=== PATIENT | female | born 1970 | race Caucasian/White ===

== ENCOUNTER 2019-12-13 10:53 | Emergency (ER) | payer MEDICARE, MEDICAID ==
[2019-12-13] MEDS ORDERED: LORazepam 1 MG Tab PO ONE (13:20)
--- NOTE | 2019-12-13 13:23 | EDM.PDOCBH ---
ED HPI GENERAL MEDICAL PROBLEM - General Chief Complaint: Behavioral/Psych Stated Complaint: EVAL Time Seen by Provider: 12/13/19 13:15 Source of Information: Reports: Patient, RN Notes Reviewed History Limitations: Reports: No Limitations - History of Present Illness INITIAL COMMENTS - FREE TEXT/NARRATIVE: 49-year-old female presents emergency department today with long [place]. She is a member of the [facility] has an extensive psychiatric history. Is verbalizing self-harm with cutting behavior. This has happened in the past. Recently had changes in the [facility] where her primary caregiver is on vacation for 1week which time she started acting out stating she has self-harm. She admits to being upset angry and scared and is having difficulty coping with her current living situation - Related Data Allergies Allergy/AdvReac Type Severity Reaction Status Date / Time No Known Allergies Allergy Verified 12/13/19 13:06 Home Meds: Home Meds Benztropine [Cogentin] 1 mg PO DAILY 12/13/19 [History] Calcium Carbonate [Tums] 200 mg PO ASDIRECTED 12/13/19 [History] Calcium Carbonate/Vitamin D3 [Calcium 600 + D3 Softgel] 1 each PO DAILY [History] Divalproex Sodium [Depakote ER] 500 mg PO DAILY 12/13/19 [History] Eszopiclone [Lunesta] 3 mg PO BEDTIME 12/13/19 [History] FLUoxetine [PROzac] 10 mg PO DAILY 12/13/19 [History] Famotidine 20 mg PO BID 12/13/19 [History] Gabapentin [Neurontin] 300 mg PO BID 12/13/19 [History] Gabapentin [Neurontin] 900 mg PO BEDTIME 12/13/19 [History] Ibuprofen [Advil] 200 mg PO Q6HR PRN 12/13/19 [History] LORazepam [Ativan] 1.5 tab PO ASDIRECTED 12/13/19 [History] Magnesium 400 mg PO BEDTIME 12/13/19 [History] OLANZapine [Zyprexa] 5 mg PO DAILY 12/13/19 [History] OLANZapine [Zyprexa] 15 mg PO BEDTIME 12/13/19 [History] OXcarbazepine [Trileptal] 900 mg PO BEDTIME 12/13/19 [History] Omeprazole Magnesium [Prilosec] 20 mg PO DAILY 12/13/19 [History] Propranolol [Inderal] 20 mg PO BID 12/13/19 [History] haloperidoL [Haloperidol] 20 mg PO DAILY 12/13/19 [History] Past Medical History HEENT History: Reports: Impaired Vision Genitourinary History: Reports: Urinary Incontinence Psychiatric History: Reports: Psych Hospitalization(s), Suicide Attempt, Suicidal Ideation - Past Surgical History Head Surgeries/Procedures: Reports: None Female Surgical History: Reports: None Dermatological Surgical History: Reports: None Social & Family History - Tobacco Use Smoking Status *Q: Former Smoker Used Tobacco, but Quit: Yes Month/Year Tobacco Last Used: 2018 Second Hand Smoke Exposure: No - Caffeine Use Caffeine Use: Reports: Coffee, Soda - Recreational Drug Use Recreational Drug Use: No ED ROS GENERAL - Review of Systems Review Of Systems: See Below Constitutional: Reports: No Symptoms HEENT: Reports: No Symptoms Respiratory: Reports: No Symptoms Cardiovascular: Reports: No Symptoms GI/Abdominal: Reports: No Symptoms Psychiatric: Reports: Anxiety, Other (Self-harm) ED EXAM, BEHAVIORAL HEALTH - Physical Exam Exam: See Below Text/Narrative:: Patient declined any physical exam Exam Limited By: No Limitations General Appearance: Alert, WD/WN, No Apparent Distress Psychiatric: Alert, Flat Affect, Poor Eye Contact, Other (self harm) COURSE, BEHAVIORAL HEALTH COMP - Course Vital Signs: Last Vital Signs Temp 96.9 F 12/13/19 13:06 Pulse 82 12/13/19 13:06 Resp 16 12/13/19 13:06 BP 199/119 H 12/13/19 13:06 Pulse Ox 96 12/13/19 13:06 Orders, Labs, Meds: Medications Discontinued Medications Generic Name Dose Route Start Last Admin Trade Name Freq PRN Reason Stop Dose Admin Lorazepam 1 mg 12/13/19 13:20 12/13/19 13:32 Ativan PO 12/13/19 13:21 1 mg ONETIME ONE Administration Departure - Departure Time of Disposition: 14:33 Disposition: DC/Tfer to [facility] Condition: Poor Clinical Impression: Behavioral problem - Discharge Information Referrals: PCP,None [Primary Care Provider] - Forms: ED Department Discharge Additional Instructions: Recommend try the Ativan at night from your PRN order, until you are reevaluated by your primary care hopefully this week Sepsis Event Note - Evaluation Sepsis Screening Result: No Definite Risk - Focused Exam Vital Signs: Vital Signs Temp Pulse Resp BP Pulse Ox 12/13/19 13:06 96.9 F 82 16 199/119 H 96 12/13/19 12:58 96.9 F 82 16 199/119 H 96 Date Exam was Performed: 12/13/19 Time Exam was Performed: 14:30 - Assessment/Plan Plan: Assessment Acuity = acute Site and laterality = behavioral outbursts with suicidal ideation Etiology = unknown probably related to recent change in home environment Manifestations = none Location of injury = Home Lab values = none Plan I had a long discussion with her she feels her biggest problem is she has not been able to get any sleep she does have an Ativan order as a as needed however she does not always get this depending upon staff and concern for tolerance therefore I am recommending try the as needed Ativan at night until she can be reevaluated by her primary care. Also call discussed case with her guardian to social work case manager at 1415 was in agreement with return back to the [facility] to try and minimalize any social changes This note was dictated using [employer] voice recognition software please call with any questions on syntax or grammar.
== END 2019-12-13 14:47 ==
LOC: JP.ED 10:53
DX: R45.851 Suicidal ideations (principal); Z87.891 Personal history of nicotine dependence; Z79.899 Other long term (current) drug therapy
CPT/HCPCS: 99284; A9270

== ENCOUNTER 2024-04-06 07:46 | Day surgery (SDC) | payer MEDICARE, MEDICAID ==
[2024-04-06] MEDS ORDERED: Propofol 200 MG/20 ML SDV ONE (07:57)
[2024-04-06] MEDS ORDERED: Midazolam 1 MG/ML 2 ML SDV ONE (07:57)
[2024-04-06] MEDS ORDERED: fentaNYL 50 MCG/ML SDV ONE (07:58)
[2024-04-06] MEDS: Sodium Chloride 0.9% 1,000 ML IV SCH (08:56)
== END 2024-04-06 10:22 | disposition home or self-care (01) ==
LOC: JP.SDS 07:46
PROVIDERS: ATTEND Surgery
DX: R10.13 Epigastric pain (principal); R13.10 Dysphagia, unspecified; K22.89 Other specified disease of esophagus; F17.200 Nicotine dependence, unspecified, uncomplicated
CPT/HCPCS: 00731; 43239; 88305; J2250; J2704; J3010; J7030

== ENCOUNTER 2024-04-30 13:08 | Emergency (ER) | payer MEDICARE, MEDICAID ==
[2024-04-30 14:05] LABS: APPEARANCE,URINE SLIGHTLY CLOUDY (CLEAR); BILIRUBIN,URINE NEGATIVE (NEGATIVE); COLOR,URINE YELLOW (YELLOW); GLUCOSE,URINE NEGATIVE (NEGATIVE); KETONES,URINE NEGATIVE (NEGATIVE); LEUKOCYTE ESTERASE,URINE TRACE (NEGATIVE); NITRITE,URINE NEGATIVE (NEGATIVE); OCCULT BLOOD,URINE NEGATIVE (NEGATIVE); PROTEIN,URINE TRACE mg/dL (NEGATIVE)
[2024-04-30 14:08] LABS: AMORPHOUS SEDIMENT,URINE FEW; BACTERIA,URINE FEW; EPITHELIAL CELLS,URINE FEW; MUCUS,URINE NOT SEEN; RBC,URINE 0-5 (0-5)
== END 2024-04-30 15:01 | disposition home or self-care (01) ==
LOC: JP.ED 13:08
DX: E87.1 Hypo-osmolality and hyponatremia (principal); E78.00 Pure hypercholesterolemia, unspecified; K21.9 Gastro-esophageal reflux disease without esophagitis; Z86.16 Personal history of COVID-19; Z79.899 Other long term (current) drug therapy
CPT/HCPCS: 81001; 87086; 99284